=== PATIENT | male | born 1975 | race Caucasian/White ===

== ENCOUNTER → 2016-11-05 | Outpatient (CLI) | payer BC, OTHER ==
--- NOTE | 2016-11-05 08:41 | Diagnostic Imaging Report ---
Ultrasound of the liver. INDICATION: Elevated liver enzymes. FINDINGS: The pancreas is largely obscured by bowel gas. The liver craniocaudal measurement is 18 cm, the upper limits of normal. The liver is homogeneous but hyperechoic and attenuates the ultrasound beam suggestive of hepatitis or fatty infiltration. Hepatopetal flow in the portal vein is seen. There is no focal hepatic mass identified. The gallbladder demonstrates no stones or wall thickening. Sonographic Pedersen sign is reportedly negative. The CBD is obscured. The right kidney is 12.1 cm in length with no hydronephrosis or focal lesion. No fluid collection in the upper right abdomen seen. IMPRESSION: Liver size is at the upper limits of normal with parenchymal echogenicity suggestive of underlying hepatitis or fatty infiltration. Dictated by: Dictated on workstation # [id number]
== END ==
LOC: RAD 07:27
PROVIDERS: ATTEND Internal Medicine
DX: R74.0 Nonspecific elevation of levels of transaminase and lactic acid dehydrogenase [LDH] (principal)
CPT/HCPCS: 76705